=== PATIENT | male | born 1985 | race Caucasian/White ===

== ENCOUNTER → 2016-09-02 | Outpatient (CLI) | payer OTHER | END | disposition home or self-care (01) | LOC: RAD 16:20 | DX: M54.5 Low back pain (principal); M79.605 Pain in left leg; M79.604 Pain in right leg; M25.561 Pain in right knee; M25.562 Pain in left knee ==

== ENCOUNTER 2017-02-07 23:57 | Emergency (ER) | payer OTHER ==
[~2017-02-07] VITALS: Wt 90.7 kg
[2017-02-08 00:37] LABS: BASO % 0.6 % (0.0-1.0); EOS # 0.2 10*3/uL (0.0-0.4); EOS % 3.3 % (1.0-4.0); HEMATOCRIT 45.5 % (42.0-52.0); LYMPH # 2.9 10*3/uL (1.3-4.4); LYMPH % 58.7 % (27.0-41.0); MEAN CELL VOLUME 89.2 fl (80.0-94.0); MEAN CORPUSCULAR HGB 31.4 pg (27.0-31.0); MEAN CORPUSCULAR HGB CONC 35.2 g/dl (33.0-37.0); MEAN PLATELET VOLUME 12.2 fl (9.6-12.3); MONO # 0.3 10*3/uL (0.1-1.0); MONO % 5.3 % (3.0-9.0); NEUT # 1.6 10*3/uL (2.3-7.9); NEUT % 31.9 % (47.0-73.0); PLATELET COUNT AUTOMATED 150 10*3/uL (130-400); RED CELL DISTRI WIDTH 11.9 % (0-14.5); WHITE BLOOD COUNT 4.9 10*3/uL (4.8-10.8)
[2017-02-08 00:48] LABS: BUN 8 mg/dl (7-24); CHLORIDE 106 mmol/L (98-107); CREATININE 1.02 mg/dL (0.70-1.30); POTASSIUM 3.6 mmol/L (3.5-5.1); SODIUM 143 mmol/L (136-145)
== END 2017-02-08 01:56 | disposition home or self-care (01) ==
LOC: ED 23:57
PROVIDERS: Student in an Organized Health Care Education/Training Program
DX: S61.521A Laceration with foreign body of right wrist, initial encounter (principal); F10.129 Alcohol abuse with intoxication, unspecified; W25.XXXA Contact with sharp glass, initial encounter; Y93.89 Activity, other specified; Y92.098 Other place in other non-institutional residence as the place of occurrence of the external cause; Y99.9 Unspecified external cause status; Y90.9 Presence of alcohol in blood, level not specified

== ENCOUNTER 2017-02-10 16:30 | Inpatient (IN) | payer OTHER ==
[~2017-02-10] VITALS: Ht 180.3 cm; Wt 97.2 kg
--- NOTE | ~2017-02-10 | CON ---
[place], [place] REPORT OF CONSULTATION NAME: CHRISTIANO YOUNG UNIT #: [id number] ROOM: 402 DOCTOR: JUANI CASTILLO MD BIRTHDATE: [birth year] DOS: 02/11/2017 PSYCHIATRIC CONSULT CHIEF COMPLAINT: "Look what I did to my hand." HISTORY OF PRESENT ILLNESS: This is a 31-year-old male who presented to the Emergency Room with acute alcohol withdrawal. He also had slammed a wine glass down lacerating his hand. The patient was hoping to get into the [employer] [facility] in order to stop drinking. The patient reports that he used to drink wine 6-7 days a week, but now he will go days without drinking, but then will binge for 3-4 days straight and drink even heavier. He knows that the drinking has become problematic not only for him but for his relationship with his and family. He fears that if he does not stop drinking, he will lose his family and he values that relationship greater than he does the alcohol and wants help to be able to stop drinking. He denies depression or anxiety and states that his major issue right now is the alcohol abuse. He is open to utilizing medications that will help decrease his craving. He denies any other substance abuse issues. PAST MEDICAL HISTORY: Remarkable for hypertension. MENTAL STATUS: The patient is alert and oriented x 3. Mood is somewhat subdued, but he does seem somewhat euthymic. He denies any symptoms suggestive of hypomania or nikky. There are no auditory or visual hallucinations. No delusions, no paranoia. He is able to process information well and his speech rate and pattern is within normal limits. Memory is fully intact. DIAGNOSIS: Alcohol abuse, unspecified. PLAN: I will go ahead and order him Campral 666 mg 3 times daily, this should decrease his craving for the alcohol. He would benefit from some type of outpatient substance abuse treatment as well and perhaps some type of family counseling. JUANI CASTILLO MD CM:CONSTR:REPORT OF CONSULTATION 1011 02/11/172020 interface
[2017-02-10 17:02] VITALS: BP 134/90
[2017-02-10 17:07] LABS: BASO # 0.1 10*3/uL (0.0-0.1); BASO % 0.8 % (0.0-1.0); EOS # 0.1 10*3/uL (0.0-0.4); EOS % 0.8 % (1.0-4.0); HEMATOCRIT 45.4 % (42.0-52.0); HEMOGLOBIN 16.3 g/dl (14.0-18.0); LYMPH # 3.4 10*3/uL (1.3-4.4); LYMPH % 56.5 % (27.0-41.0); MEAN CELL VOLUME 87.8 fl (80.0-94.0); MEAN CORPUSCULAR HGB 31.5 pg (27.0-31.0); MEAN CORPUSCULAR HGB CONC 35.9 g/dl (33.0-37.0); MONO # 0.3 10*3/uL (0.1-1.0); MONO % 5.4 % (3.0-9.0); NEUT # 2.2 10*3/uL (2.3-7.9); NEUT % 36.3 % (47.0-73.0); PLATELET COUNT AUTOMATED 189 10*3/uL (130-400); RED BLOOD COUNT 5.17 10*6/uL (4.50-5.90); RED CELL DISTRI WIDTH 11.8 % (0-14.5)
[2017-02-10 17:16] LABS: ACT PARTIAL THROMBO TIME 25.8 SECONDS (20.8-31.5)
[2017-02-10 17:21] LABS: ALBUMIN 4.2 gm/dl (3.1-4.5); ALKALINE PHOSPHATASE 82 U/L (45-117); BUN 9 mg/dl (7-24); CHLORIDE 99 mmol/L (98-107); CREATININE 1.04 mg/dL (0.70-1.30); POTASSIUM 3.9 mmol/L (3.5-5.1); SGOT/AST 26 IU/L (3-35); SGPT/ALT 43 U/L (12-78); SODIUM 137 mmol/L (136-145); TOTAL PROTEIN 8.2 gm/dL (6.4-8.2)
[2017-02-10 19:54] LABS: BILIRUBIN NEGATIVE (NEGATIVE); BLOOD NEGATIVE (NEGATIVE); CLARITY CLEAR (CLEAR); COLOR YELLOW (YELLOW); GLUCOSE NEGATIVE (NEGATIVE); KETONE TRACE (NEGATIVE); LEUKO ESTERASE NEGATIVE (NEGATIVE); NITRITE NEGATIVE (NEGATIVE); PH 6.5 (5.0-9.0); SPECIFIC GRAVITY 1.015 (1.005-1.030); UROBILINOGEN 0.2 E.U./dl (0.2-1.0)
[2017-02-10 20:00] VITALS: BP 144/87
[2017-02-10 20:04] LABS: URINE AMPHETAMINES < 1000 (1000ng/ml); URINE BARBITURATES < 200 (200ng/ml); URINE BENZODIAZEPINES < 200 (200ng/ml); URINE CANNABINOIDS (THC) < 50 (50ng/ml); URINE COCAINE < 300 (300ng/ml); URINE METHADONE < 300 (300ng/ml); URINE OPIATES < 300 (300ng/ml)
[2017-02-10 20:07] LABS: WBC 0-2 wbc/hpf (0-5)
[2017-02-10 20:08] LABS: URINE PHENCYCLIDINE < 25 (25ng/ml)
[2017-02-11] VITALS: BP 127/79
[2017-02-11 08:00] VITALS: BP 125/74
[2017-02-11 12:00] VITALS: BP 141/82
[2017-02-11 16:00] VITALS: BP 139/90
[2017-02-11 20:00] VITALS: BP 133/89
[2017-02-12] VITALS: BP 132/84
[2017-02-12 08:00] VITALS: BP 107/72
[2017-02-12 12:00] VITALS: BP 142/91
[2017-02-12 16:00] VITALS: BP 137/92
[2017-02-12 20:00] VITALS: BP 132/83
[2017-02-13] VITALS: BP 114/60; BP 122/78
[2017-02-13 07:42] LABS: BASO % 0.7 % (0.0-1.0); EOS # 0.3 10*3/uL (0.0-0.4); HEMATOCRIT 39.6 % (42.0-52.0); HEMOGLOBIN 14.2 g/dl (14.0-18.0); LYMPH # 2.3 10*3/uL (1.3-4.4); LYMPH % 54.8 % (27.0-41.0); MEAN CELL VOLUME 91.7 fl (80.0-94.0); MEAN CORPUSCULAR HGB 32.9 pg (27.0-31.0); MEAN CORPUSCULAR HGB CONC 35.9 g/dl (33.0-37.0); MEAN PLATELET VOLUME 12.6 fl (9.6-12.3); MONO # 0.3 10*3/uL (0.1-1.0); MONO % 7.6 % (3.0-9.0); NEUT # 1.3 10*3/uL (2.3-7.9); NEUT % 30.9 % (47.0-73.0); PLATELET COUNT AUTOMATED 133 10*3/uL (130-400); RED BLOOD COUNT 4.32 10*6/uL (4.50-5.90); RED CELL DISTRI WIDTH 11.8 % (0-14.5); WHITE BLOOD COUNT 4.2 10*3/uL (4.8-10.8)
[2017-02-13 08:00] VITALS: BP 107/70
== END 2017-02-13 10:50 | disposition home or self-care (01) | DRG 897 ==
LOC: ED 16:30 → EDHOLD 17:01 → 4E 17:01
PROVIDERS: Emergency Medicine
DX: F10.230 Alcohol dependence with withdrawal, uncomplicated (principal); F10.220 Alcohol dependence with intoxication, uncomplicated; I10 Essential (primary) hypertension; F32.9 Major depressive disorder, single episode, unspecified; F43.10 Post-traumatic stress disorder, unspecified; F17.210 Nicotine dependence, cigarettes, uncomplicated; Z88.8 Allergy status to other drugs, medicaments and biological substances; Z91.040 Latex allergy status; Z86.711 Personal history of pulmonary embolism; Z82.5 Family history of asthma and other chronic lower respiratory diseases; Z71.6 Tobacco abuse counseling

== ENCOUNTER 2017-04-03 04:43 | Emergency (ER) | payer OTHER ==
[~2017-04-03] VITALS: Ht 180.3 cm; Wt 90.7 kg
[2017-04-03 04:57] LABS: BASO # 0.1 10*3/uL (0.0-0.1); BASO % 1.4 % (0.0-1.0); EOS # 0.3 10*3/uL (0.0-0.4); EOS % 5.4 % (1.0-4.0); HEMATOCRIT 47.3 % (42.0-52.0); HEMOGLOBIN 16.8 g/dl (14.0-18.0); LYMPH # 2.6 10*3/uL (1.3-4.4); LYMPH % 54.2 % (27.0-41.0); MEAN CELL VOLUME 88.4 fl (80.0-94.0); MEAN CORPUSCULAR HGB 31.4 pg (27.0-31.0); MEAN CORPUSCULAR HGB CONC 35.5 g/dl (33.0-37.0); MEAN PLATELET VOLUME 12.5 fl (9.6-12.3); MONO # 0.3 10*3/uL (0.1-1.0); MONO % 6.2 % (3.0-9.0); NEUT # 1.6 10*3/uL (2.3-7.9); NEUT % 32.6 % (47.0-73.0); PLATELET COUNT AUTOMATED 176 10*3/uL (130-400); RED BLOOD COUNT 5.35 10*6/uL (4.50-5.90); RED CELL DISTRI WIDTH 11.8 % (0-14.5); WHITE BLOOD COUNT 4.8 10*3/uL (4.8-10.8)
[2017-04-03 05:12] LABS: ALBUMIN 4.5 gm/dl (3.1-4.5); ALKALINE PHOSPHATASE 70 U/L (45-117); BUN 12 mg/dl (7-24); CHLORIDE 109 mmol/L (98-107); CREATININE 1.02 mg/dL (0.70-1.30); POTASSIUM 3.6 mmol/L (3.5-5.1); SGOT/AST 38 IU/L (3-35); SGPT/ALT 61 U/L (12-78); SODIUM 143 mmol/L (136-145); TOTAL PROTEIN 7.7 gm/dL (6.4-8.2)
[2017-04-03 05:13] LABS: ACETAMINOPHEN (TYLENOL) < 2.0 ug/ml (10-30)
== END 2017-04-03 12:14 | disposition other institution (70) ==
LOC: ED 04:43
PROVIDERS: Emergency Medicine Emergency Medical Services
DX: F10.129 Alcohol abuse with intoxication, unspecified (principal); F17.200 Nicotine dependence, unspecified, uncomplicated; I10 Essential (primary) hypertension; Y90.9 Presence of alcohol in blood, level not specified

== ENCOUNTER → 2020-03-01 | Outpatient (CLI) | payer OTHER | LOC: MRI 02-26 10:00 | PROVIDERS: ATTEND Nurse Practitioner Family | DX: M51.26 Other intervertebral disc displacement, lumbar region (principal); M51.27 Other intervertebral disc displacement, lumbosacral region ==

== ENCOUNTER 2020-03-20 12:46 | Emergency (ER) | payer OTHER ==
[~2020-03-20] VITALS: Wt 106.1 kg
[2020-03-20 13:12] LABS: BASO % 0.7 % (0.0-1.0); EOS # 0.1 10*3/uL (0.0-0.4); EOS % 1.1 % (1.0-4.0); HEMATOCRIT 48.9 % (42.0-52.0); LYMPH # 2.3 10*3/uL (1.3-4.4); LYMPH % 50.1 % (27.0-41.0); MEAN CELL VOLUME 98.8 fl (80.0-94.0); MEAN CORPUSCULAR HGB 35.4 pg (27.0-31.0); MEAN CORPUSCULAR HGB CONC 35.8 g/dl (33.0-37.0); MEAN PLATELET VOLUME 12.2 fl (9.6-12.3); MONO # 0.2 10*3/uL (0.1-1.0); MONO % 5.3 % (3.0-9.0); NEUT # 1.9 10*3/uL (2.3-7.9); NEUT % 42.8 % (47.0-73.0); PLATELET COUNT AUTOMATED 123 10*3/uL (130-400); RED BLOOD COUNT 4.95 10*6/uL (4.50-5.90); RED CELL DISTRI WIDTH 12.2 % (0-14.5); WHITE BLOOD COUNT 4.5 10*3/uL (4.8-10.8)
[2020-03-20 13:21] LABS: INTERNATIONAL NORM RATIO 0.9 (2.0-3.5)
[2020-03-20 13:29] LABS: ALBUMIN 4.1 gm/dl (3.1-4.5); ALKALINE PHOSPHATASE 72 U/L (45-117); BUN 12 mg/dl (7-24); CREATININE 0.96 mg/dL (0.70-1.30); SGOT/AST 116 IU/L (3-35); SGPT/ALT 140 U/L (12-78); TOTAL PROTEIN 7.9 gm/dL (6.4-8.2)
[2020-03-20 13:38] LABS: CHLORIDE 101 mmol/L (98-107); POTASSIUM 4.1 mmol/L (3.5-5.1); SODIUM 137 mmol/L (136-145); TROPONIN I < 0.015 ng/ml (<0.045)
[2020-03-20 14:17] LABS: BILIRUBIN Negative (Negative); BLOOD Trace-Lysed (Negative); CLARITY Clear (Clear); COLOR Yellow (Yellow); GLUCOSE Negative (Negative); KETONE 2+ (Negative); LEUKO ESTERASE Negative (Negative); NITRITE Negative (Negative)
[2020-03-20 14:20] LABS: URINE AMPHETAMINES < 1000 (1000ng/ml); URINE BARBITURATES < 200 (200ng/ml); URINE BENZODIAZEPINES < 200 (200ng/ml); URINE CANNABINOIDS (THC) < 50 (50ng/ml); URINE COCAINE < 300 (300ng/ml); URINE METHADONE < 300 (300ng/ml); URINE OPIATES < 300 (300ng/ml)
[2020-03-20 14:23] LABS: BACTERIA TRACE; RBC 0-2 rbc/hpf (0-2); WBC 0-2 wbc/hpf (0-5)
[2020-03-20 14:27] LABS: URINE PHENCYCLIDINE < 25 (25ng/ml)
== END 2020-03-20 16:10 | disposition left against medical advice (07) ==
LOC: ED 12:46
PROVIDERS: Physician Assistant
DX: M54.5 Low back pain (principal); M79.604 Pain in right leg; M79.605 Pain in left leg; Z53.29 Procedure and treatment not carried out because of patient's decision for other reasons

== ENCOUNTER → 2020-03-28 | Outpatient (CLI) | payer OTHER | END | disposition home or self-care (01) | LOC: US 11:00 | PROVIDERS: ATTEND Nurse Practitioner Family | DX: K76.0 Fatty (change of) liver, not elsewhere classified (principal); R16.0 Hepatomegaly, not elsewhere classified ==

== ENCOUNTER 2020-08-21 10:50 | Emergency (ER) | payer OTHER ==
[2020-08-21 12:51] LABS: BASO % 0.1 % (0.0-1.0); HEMATOCRIT 36.7 % (42.0-52.0); LYMPH # 0.8 10*3/uL (1.3-4.4); LYMPH % 9.7 % (27.0-41.0); MEAN CELL VOLUME 99.2 fl (80.0-94.0); MEAN CORPUSCULAR HGB 34.9 pg (27.0-31.0); MEAN CORPUSCULAR HGB CONC 35.1 g/dl (33.0-37.0); MEAN PLATELET VOLUME 11.8 fl (9.6-12.3); MONO # 0.4 10*3/uL (0.1-1.0); MONO % 5.1 % (3.0-9.0); NEUT # 6.7 10*3/uL (2.3-7.9); NEUT % 84.8 % (47.0-73.0); PLATELET COUNT AUTOMATED 219 10*3/uL (130-400); RED CELL DISTRI WIDTH 14.3 % (0-14.5); WHITE BLOOD COUNT 7.9 10*3/uL (4.8-10.8)
[2020-08-21 13:02] LABS: BUN 13 mg/dl (7-24); CHLORIDE 104 mmol/L (98-107); CREATININE 1.14 mg/dL (0.70-1.30); POTASSIUM 5.2 mmol/L (3.5-5.1); SODIUM 134 mmol/L (136-145)
== END 2020-08-21 16:24 | disposition home or self-care (01) ==
LOC: ED 10:50
PROVIDERS: Emergency Medicine
DX: S02.602A Fracture of unspecified part of body of left mandible, initial encounter for closed fracture (principal); S02.642A Fracture of ramus of left mandible, initial encounter for closed fracture; S41.111A Laceration without foreign body of right upper arm, initial encounter; S06.0X9A Concussion with loss of consciousness of unspecified duration, initial encounter; F10.920 Alcohol use, unspecified with intoxication, uncomplicated; I10 Essential (primary) hypertension; F17.200 Nicotine dependence, unspecified, uncomplicated; Y04.2XXA Assault by strike against or bumped into by another person, initial encounter; Y93.89 Activity, other specified; Y92.89 Other specified places as the place of occurrence of the external cause; Y99.8 Other external cause status

== ENCOUNTER 2021-06-11 19:38 | Emergency (ER) | payer OTHER ==
[~2021-06-11] VITALS: Ht 180.3 cm; Wt 93.4 kg
[2021-06-11] MEDS ORDERED: MELATONIN1 M5 PO (20:30)
[2021-06-11] MEDS ORDERED: TRAZODONE150 MG PO (20:30)
[2021-06-11 21:44] LABS: HEMATOCRIT 46.2 % (42.0-52.0); MEAN CELL VOLUME 99.4 fl (80.0-94.0); MEAN CORPUSCULAR HGB 34.4 pg (27.0-31.0); MEAN CORPUSCULAR HGB CONC 34.6 g/dl (33.0-37.0); MEAN PLATELET VOLUME 11.3 fl (9.6-12.3); PLATELET COUNT AUTOMATED 213 10*3/uL (130-400); RED BLOOD COUNT 4.65 10*6/uL (4.50-5.90); RED CELL DISTRI WIDTH 13.9 % (0-14.5); WHITE BLOOD COUNT 3.8 10*3/uL (4.8-10.8)
[2021-06-11 21:55] LABS: MANUAL DIFF REFLEX YES
[2021-06-11 21:58] LABS: BILIRUBIN Negative (Negative); BLOOD Negative (Negative); CLARITY Cloudy (Clear); COLOR Yellow (Yellow); GLUCOSE Negative (Negative); KETONE Trace (Negative); LEUKO ESTERASE Negative (Negative); NITRITE Negative (Negative); PH 5.5 (4.5-8.0); SPECIFIC GRAVITY 1.015 (1.001-1.030)
[2021-06-11 22:05] LABS: ATYPICAL LYMPHS 1 % (0-0); BASOPHILS 4 % (0-1); TOTAL CELLS COUNTED 100 #CELLS
[2021-06-11 22:06] LABS: PLATELET SUFFICIENCY NORMAL (NORMAL); STOMATOCYTE FEW
[2021-06-11 22:08] LABS: BACTERIA TRACE; WBC 0-2 wbc/hpf (0-5)
[2021-06-11 22:09] LABS: ALKALINE PHOSPHATASE 69 U/L (45-117); BUN 5 mg/dl (7-24); CHLORIDE 105 mmol/L (98-107); CREATININE 0.73 mg/dL (0.70-1.30); POTASSIUM 3.3 mmol/L (3.5-5.1); SGOT/AST 189 IU/L (3-35); SGPT/ALT 143 U/L (12-78); SODIUM 143 mmol/L (136-145); TOTAL PROTEIN 7.8 gm/dL (6.4-8.2)
[2021-06-11 22:09] LABS: URINE AMPHETAMINES < 1000 (1000ng/ml); URINE BARBITURATES < 200 (200ng/ml); URINE BENZODIAZEPINES < 200 (200ng/ml); URINE CANNABINOIDS (THC) < 50 (50ng/ml); URINE COCAINE < 300 (300ng/ml); URINE METHADONE < 300 (300ng/ml); URINE OPIATES < 300 (300ng/ml)
[2021-06-11 22:11] LABS: URINE PHENCYCLIDINE < 25 (25ng/ml)
== END 2021-06-12 07:10 | disposition home or self-care (01) ==
LOC: ED 19:38
PROVIDERS: Physician Assistant
DX: F10.129 Alcohol abuse with intoxication, unspecified (principal); Y90.9 Presence of alcohol in blood, level not specified; F17.200 Nicotine dependence, unspecified, uncomplicated

== ENCOUNTER 2021-07-05 17:50 | Emergency (ER) | payer MEDICAID ==
[~2021-07-05] VITALS: Wt 89.4 kg
[~2021-07-05 17:50] MED LIST: MELATONIN1 M5 PO; TRAZODONE150 MG PO
[2021-07-05 18:17] LABS: BASO % 1.2 % (0.0-1.0); EOS % 1.2 % (1.0-4.0); HEMATOCRIT 41.4 % (42.0-52.0); LYMPH # 0.7 10*3/uL (1.3-4.4); MEAN CELL VOLUME 96.7 fl (80.0-94.0); MEAN CORPUSCULAR HGB 34.6 pg (27.0-31.0); MEAN CORPUSCULAR HGB CONC 35.7 g/dl (33.0-37.0); MEAN PLATELET VOLUME 11.3 fl (9.6-12.3); MONO # 0.2 10*3/uL (0.1-1.0); MONO % 6.9 % (3.0-9.0); NEUT # 1.7 10*3/uL (2.3-7.9); NEUT % 65.7 % (47.0-73.0); PLATELET COUNT AUTOMATED 127 10*3/uL (130-400); RED BLOOD COUNT 4.28 10*6/uL (4.50-5.90); RED CELL DISTRI WIDTH 13.2 % (0-14.5); WHITE BLOOD COUNT 2.6 10*3/uL (4.8-10.8)
[2021-07-05 18:25] LABS: ACT PARTIAL THROMBO TIME 26.2 SECONDS (20.0-32.1); INTERNATIONAL NORM RATIO 1.1 (2.0-3.5)
[2021-07-05 18:36] LABS: ALKALINE PHOSPHATASE 66 U/L (45-117); BUN 9 mg/dl (7-24); CHLORIDE 97 mmol/L (98-107); CPK 126 U/L (39-308); CREATININE 0.82 mg/dL (0.70-1.30); POTASSIUM 3.1 mmol/L (3.5-5.1); SGOT/AST 121 IU/L (3-35); SGPT/ALT 100 U/L (12-78); SODIUM 136 mmol/L (136-145); TOTAL PROTEIN 7.1 gm/dL (6.4-8.2)
[2021-07-05 18:39] LABS: ETHYL ALCOHOL < 3.0 mg/dl (<3)
[2021-07-05 19:12] LABS: BILIRUBIN Negative (Negative); BLOOD Negative (Negative); CLARITY Clear (Clear); COLOR Orange (Yellow); GLUCOSE Negative (Negative); KETONE Trace (Negative); LEUKO ESTERASE Trace (Negative); NITRITE Negative (Negative)
[2021-07-05 19:19] LABS: URINE AMPHETAMINES < 1000 (1000ng/ml); URINE BARBITURATES > 200 (200ng/ml); URINE BENZODIAZEPINES < 200 (200ng/ml); URINE CANNABINOIDS (THC) < 50 (50ng/ml); URINE COCAINE < 300 (300ng/ml); URINE METHADONE < 300 (300ng/ml); URINE OPIATES < 300 (300ng/ml); URINE PHENCYCLIDINE < 25 (25ng/ml)
[2021-07-05 19:28] LABS: BACTERIA 1+; MUCOUS 1+; RBC 0-2 rbc/hpf (0-2)
[2021-07-05 19:29] LABS: EPITHELIAL CELLS 0-2
== END 2021-07-05 22:04 ==
LOC: ED 17:50
PROVIDERS: Emergency Medicine
DX: R56.9 Unspecified convulsions (principal); D72.829 Elevated white blood cell count, unspecified; E87.6 Hypokalemia; E87.2 Acidosis

== ENCOUNTER → 2022-07-03 | Outpatient (CLI) | payer OTHER | END | disposition home or self-care (01) | LOC: US 06-19 10:30 | PROVIDERS: ATTEND Family Medicine | DX: R60.9 Edema, unspecified (principal) ==

== ENCOUNTER 2023-12-22 11:29 | Observation (INO) | payer OTHER ==
[~2023-12-22] VITALS: Ht 180.3 cm; Wt 99.8 kg
[~2023-12-22 11:29] MED LIST changes: +ARIPIPRAZOLE5 MG PO; +PANTOPRAZOLE SO40 MG PO
[2023-12-22 11:35] VITALS: BP 166/116
[2023-12-22] MEDS ORDERED: FOLIC ACID 1 MG TAB PO ONE (11:45)
[2023-12-22] MEDS ORDERED: MAGNESIUM SULFATE 4 GM/100 ML IVB IV ONE (11:45)
[2023-12-22] MEDS ORDERED: DIAZEPAM 5 MG TAB PO ONE (11:50)
[2023-12-22 12:23] LABS: HEMATOCRIT 43.3 % (42.0-52.0); MEAN CELL VOLUME 98.9 fl (80.0-94.0); MEAN CORPUSCULAR HGB 35.2 pg (27.0-31.0); MEAN CORPUSCULAR HGB CONC 35.6 g/dl (33.0-37.0); PLATELET COUNT AUTOMATED 60 10*3/uL (130-400); RED BLOOD COUNT 4.38 10*6/uL (4.50-5.90); RED CELL DISTRI WIDTH 13.2 % (0-14.5); WHITE BLOOD COUNT 3.2 10*3/uL (4.8-10.8)
[2023-12-22 12:40] LABS: MANUAL DIFF REFLEX YES
[2023-12-22 12:43] LABS: BASOPHILS 1 % (0-1); TOTAL CELLS COUNTED 100 #CELLS
[2023-12-22 12:44] LABS: BUN 8 mg/dl (9-23); CHLORIDE 96 mmol/L (98-107); CPK 157 U/L (34-171); PLATELET SUFFICIENCY LOW (NORMAL); POTASSIUM 3.2 mmol/L (3.4-5.1)
[2023-12-22 13:06] LABS: ETHYL ALCOHOL < 3.0 mg/dl (<3)
[2023-12-22] MEDS ORDERED: POTASSIUM CHLORIDE 20 MEQ TAB PO ONE (13:20)
[2023-12-22 13:23] VITALS: BP 125/88
[2023-12-22] MEDS ORDERED: Thiamine 200 MG/2 ML VIAL IV SCH (14:00)
[2023-12-22] MEDS ORDERED: LORazepam 2 MG/ML VIAL IV PRN (14:10)
[2023-12-22] MEDS ORDERED: Water, Sterile 10 ML VIAL IV PRN (14:10)
[2023-12-22] MEDS ORDERED: Dicyclomine Hydrochloride 20 MG TAB PO PRN (14:10)
[2023-12-22] MEDS ORDERED: hydrOXYzine 50 MG CAP PO PRN (14:10)
[2023-12-22] MEDS ORDERED: METHOCARBAMOL 750 MG TAB PO PRN (14:10)
[2023-12-22] MEDS ORDERED: Loperamide Hydrochloride 2 MG CAP PO PRN ×2 (14:15)
[2023-12-22] MEDS ORDERED: Ondansetron Hydrochloride 4 MG TAB PO PRN (14:15)
[2023-12-22] MEDS ORDERED: MG-AL HYDROXIDE/SIMETICONE 30 ML UDC PO PRN (14:15)
[2023-12-22] MEDS ORDERED: BISACODYL 10 MG SUPP R PRN (14:15)
[2023-12-22] MEDS ORDERED: Nicotine 21 MG PATCH T PRN (14:15)
[2023-12-22] MEDS ORDERED: Ondansetron Hydrochloride 4 MG/2 ML VIAL IV PRN (14:15)
[2023-12-22] MEDS ORDERED: IBUPROFEN 600 MG TAB PO PRN (14:15)
[2023-12-22] MEDS ORDERED: ACETAMINOPHEN 500 MG TAB PO PRN (14:15)
[2023-12-22] MEDS ORDERED: Sennosides A and B 8.6 MG TAB PO PRN (14:15)
[2023-12-22] MEDS ORDERED: LORazepam 1 MG TAB PO SCH (14:24)
[2023-12-22 16:31] LABS: BILIRUBIN Negative (Negative); BLOOD Negative (Negative); CLARITY Clear (Clear); GLUCOSE Negative (Negative); KETONE Trace (Negative); LEUKO ESTERASE Trace (Negative); NITRITE Negative (Negative); PH 5.5 (4.5-8.0)
[2023-12-22 16:38] LABS: BACTERIA 1+; COLOR Yellow (Yellow); MUCOUS 1+; RBC 0-2 rbc/hpf (0-2); URINE AMPHETAMINES Negative (1000ng/ml); URINE BARBITURATES Negative (200ng/ml); URINE BENZODIAZEPINES Positive (200ng/ml); URINE CANNABINOIDS (THC) Positive (50ng/ml); URINE COCAINE Negative (300ng/ml); URINE METHADONE Negative (300ng/ml); URINE OPIATES Negative (300ng/ml); URINE PHENCYCLIDINE Negative (25ng/ml)
[2023-12-22] MEDS ORDERED: MAGNESIUM OXIDE 400 MG TAB PO SCH (18:00)
[2023-12-23] MEDS ORDERED: FOLIC ACID 1 MG TAB PO SCH (10:00)
[2023-12-23] MEDS ORDERED: Enoxaparin Sodium 40 MG/0.4 ML SYR SC SCH (10:00)
[2023-12-23] MEDS ORDERED: MULTIVITAMIN 1 TAB TAB PO SCH ×2 (10:00)
[2023-12-23] MEDS ORDERED: Thiamine 100 MG TAB PO SCH (10:00)
[2023-12-23] MEDS ORDERED: LORazepam 1 MG TAB PO SCH (16:00)
[2023-12-24] MEDS ORDERED: LORazepam 1 MG TAB PO PRN (18:00)
== END 2023-12-22 22:22 ==
LOC: ED 11:29 → EDHOLD 13:29
PROVIDERS: Emergency Medicine; ADMIT Internal Medicine; ATTEND Internal Medicine
DX: F29 Unspecified psychosis not due to a substance or known physiological condition (principal); R44.3 Hallucinations, unspecified; F10.932 Alcohol use, unspecified with withdrawal with perceptual disturbance; F43.10 Post-traumatic stress disorder, unspecified; I10 Essential (primary) hypertension; D69.6 Thrombocytopenia, unspecified; E83.42 Hypomagnesemia; F17.210 Nicotine dependence, cigarettes, uncomplicated; Z79.899 Other long term (current) drug therapy

== ENCOUNTER 2024-03-23 04:02 | Emergency (ER) | payer OTHER ==
[~2024-03-23] VITALS: Ht 180.3 cm; Wt 104.3 kg
[2024-03-23] MEDS ORDERED: TRAZODONE50 MG PO (04:13)
[2024-03-23] MEDS ORDERED: ARIPIPRAZOLE5 MG PO (04:13)
[2024-03-23 04:17] LABS: BASO # 0.1 10*3/uL (0.0-0.1); BASO % 1.2 % (0.0-1.0); EOS # 0.2 10*3/uL (0.0-0.4); EOS % 5.9 % (1.0-4.0); HEMATOCRIT 45.6 % (42.0-52.0); MEAN CELL VOLUME 98.3 fl (80.0-94.0); MEAN CORPUSCULAR HGB 34.1 pg (27.0-31.0); MEAN CORPUSCULAR HGB CONC 34.6 g/dl (33.0-37.0); MONO # 0.4 10*3/uL (0.1-1.0); MONO % 9.6 % (3.0-9.0); NEUT # 1.4 10*3/uL (2.3-7.9); NEUT % 34.9 % (47.0-73.0); PLATELET COUNT AUTOMATED 78 10*3/uL (130-400); RED BLOOD COUNT 4.64 10*6/uL (4.50-5.90); RED CELL DISTRI WIDTH 13.2 % (0-14.5); WHITE BLOOD COUNT 4.1 10*3/uL (4.8-10.8)
[2024-03-23 04:46] LABS: ALKALINE PHOSPHATASE 85 U/L (46-116); BUN 6 mg/dl (9-23); CHLORIDE 104 mmol/L (98-107); POTASSIUM 3.3 mmol/L (3.4-5.1); SGPT/ALT 244 U/L (5-49); TOTAL PROTEIN 7.5 gm/dL (6.0-8.0)
[2024-03-23 05:05] LABS: ETHYL ALCOHOL 330.8 mg/dl (<3)
== END 2024-03-23 10:08 | disposition home or self-care (01) ==
LOC: ED 04:02
PROVIDERS: Internal Medicine
DX: R44.0 Auditory hallucinations (principal); F10.10 Alcohol abuse, uncomplicated; Z72.0 Tobacco use; Z98.890 Other specified postprocedural states